=== PATIENT | female | born 1960 | race Caucasian/White ===

== ENCOUNTER 2018-09-21 05:51 | Outpatient (CLI) | payer OTHER ==
[~2018-09-21] VITALS: Ht 167.6 cm; Wt 70.8 kg
[~2018-09-21 05:51] MED LIST: CYAN1TAB26 PO; MG T1TAB2 PO
[2018-09-21] MEDS ORDERED: CHLO1TAB79 PO (13:18)
== END 2018-09-21 13:20 | disposition home or self-care (01) ==
LOC: PREOP 05:51
PROVIDERS: ATTEND Internal Medicine
DX: Z01.818 Encounter for other preprocedural examination (principal)

== ENCOUNTER 2018-09-23 09:01 | Day surgery (SDC) | payer OTHER ==
--- NOTE | 2018-09-21 18:23 | HISTORY AND PHYSICAL ---
DATE OF SERVICE: COLONOSCOPY HISTORY AND PHYSICAL HISTORY OF PRESENT ILLNESS: The patient is a 58-year-old white female who noted the onset of painless bright red blood per rectum in a small volume on the BM and also mixed in with it. She has some intermittent issues with constipation, but did not think that she recalled straining when she first noted in the stool nor was there any pain following the bowel movement. This first began 3 or 4 weeks ago and she has had three episodes, the last one was last . Her stool was not hard. She has not had issues with hemorrhoids in the past. Family history is pertinent for a brother who was diagnosed with colon cancer at the age of 56 and she also had a maternal grandmother who had colon cancer later in life. She has denied any bowel habit changes, noted no melena. She does take an allergy medication that is combined with Advil and is on no other medications of any antiplatelet or anticoagulant effects. She reports taking no form of aspirin. PAST MEDICAL HISTORY: Her last colonoscopy was performed by myself, 3-1/2 years ago. She had one diminutive tubular adenoma removed from the splenic flexure with no other areas of neoplasia. PAST SURGICAL HISTORY: She reports no significant past surgical history. SOCIAL HISTORY: She is employed with no past smoking or drinking history. FAMILY HISTORY: As noted in the HPI. ALLERGIES: SHE REPORTS PENICILLIN CAUSES HIVES. SHE DEVELOPS AGITATED, ANGRY BEHAVIOR WITH MORPHINE AND SO SHE AVOIDS ALL NARCOTIC THERAPY. WE DID HER FIRST COLONOSCOPY UNDER DIPRIVAN AND SHE DID WELL, ALTHOUGH SHE HAD SOME NAUSEA WITH THE PREP. PHYSICAL EXAMINATION: GENERAL: Reveals a pleasant white female who appeared anxious, but not in acute distress. VITAL SIGNS: Blood pressure is 142/84, weight 156.4 pounds. HEENT: Unremarkable. Sclerae are nonicteric. There is no evidence for pallor. CHEST: Clear to auscultation. CARDIOVASCULAR: Reveals a regular rate and rhythm without murmur, S3 or S4. She is a Mallampati 2 oropharyngeal configuration. ABDOMEN: Soft, supple without mass, organomegaly or tenderness. EXTREMITIES: Reveal no cyanosis, clubbing or edema. RECTAL: Evaluation was deferred at the time of colonoscopy. ASSESSMENT AND PLAN: The patient was set up for diagnostic colonoscopy for further evaluation of bright red blood per rectum with a family history pertinent for brother who was diagnosed with colon cancer at the age of 56 and one grandmother later in life. Prep instructions with the Suprep kit were given. I will give Zofran 4 tab one-half an hour before each dose of the prep and perform the procedure under Diprivan anesthesia due to INTOLERANCE TO NARCOTIC THERAPY. Job ID: [id number] DocumentID: [id number] Dictated Date: 09/19/2018 16:39:08 Cable Repairer Date: 09/19/2018 17:56:41 Dictated By: MARY RUSSO MD
[2018-09-23] VITALS (9 sets, daily range): BP systolic 102–133; BP diastolic 52–77
[~2018-09-23] VITALS: Ht 167.6 cm; Wt 70.8 kg
[~2018-09-23 09:01] MED LIST changes: +CHLO1TAB79 PO
[2018-09-23] MEDS ORDERED: LACTATED RINGERS 1,000 ML IV ONE (09:08)
[2018-09-23] MEDS ORDERED: LACTATED RINGERS 1,000 ML IV STA (09:09)
[2018-09-23] MEDS ORDERED: LIDOCAINE JELLY 2% 6 ML SYRINGE MM PRN (09:15)
--- NOTE | 2018-09-23 09:15 | NUR ---
PT C/O HEADACHE 10/25. Addendum: 09/23/18 at 0930 by SG OWENS RN Amended: Links added.
[2018-09-23] MEDS ORDERED: proPOfol 200 MG/20 ML (DIPRIVAN) VIAL IV ONE (10:01)
[2018-09-23] MEDS ORDERED: MIDAZOLAM 2 MG/2 ML (VERSED) VIAL ONE (10:01)
[2018-09-23] MEDS ORDERED: LIDOCAINE JELLY 2% 6 ML SYRINGE ONE (10:05)
--- NOTE | 2018-09-23 11:05 | Pre-Op Note & Conscious Sedat ---
Pre-Operative Progress Note H&P Reviewed The H&P was reviewed, patient examined and no changes noted. Date H&P Reviewed: Sep 23, 2018 Time H&P Reviewed: 10:00 Conscious Sedation Pre-Proced ASA Score 2 For ASA 3 and 4: Consider anesthesia and medical clearance. Also, for patients with a history of failed moderate sedation consider anesthesia. Airway Lungs Heart ASA score ASA 1: a normal healthy patient ASA 2: a patient with a mild systemic disease (mid diabetes, controlled hypertension, obesity ASA 3: a patient with a severe systemic disease that limits activity (angina, COPD, prior Myocardial infarction) ASA 4: a patient with an incapacitating disease that is a constant threat to life (CHF, renal failure) ASA 5: a moribund patient not expected to survive 24 hrs. (ruptured aneurysm) ASA 6: a declared brain- patient whose organs are being harvested. For emergent operations, add the letter E after the classification Mallampati Classification Grade 2 Sedation Plan Analgesia, Amnesia, Plan communicated to team members, Discussed options with patient/fam, Discussed risks with patient/fam The patient is an appropriate candidate to undergo the planned procedure, sedation, and anesthesia. The patient immediately re-assessed prior to indication. MARY RUSSO MD Sep 23, 2018 11:05
--- NOTE | 2018-09-23 12:13 | Anesthesia-General Post-Op ---
MAC Patient Condition Mental Status/LOC: Same as Preop Cardiovascular: Satisfactory Nausea/Vomiting: Absent Respiratory: Satisfactory Pain: Controlled Complications: Absent Post Op Complications Complications None Follow Up Care/Instructions Patient Instructions None needed. Anesthesiology Discharge Order Discharge Order Patient was seen after the procedure and she was doing well, no complaints, stable vital signs, no apparent adverse anesthesia problems. YOLANDA NEGRETE DO Sep 23, 2018 12:13
--- NOTE | 2018-09-23 19:52 | OPERATIVE REPORT ---
DATE OF SERVICE: COLONOSCOPY SUMMARY INDICATION FOR THE PROCEDURE: Rectal bleeding, family history for colon cancer. The patient was placed in the left lateral decubitus position. Prior to doing colonoscopy, digital rectal evaluation was performed. Anal sphincter tone was normal and the perianal reflexes intact. No abnormalities, no additional inspection of anal canal or distal rectal vault. The colonoscope was then inserted into the rectum and under direct visualization advanced to the cecum. The cecum was identified by identification of the ileocecal valve, the cecal strap and appendiceal orifice. Photographic documentation was obtained. The terminal ileum was intubated and distal several centimeters of terminal ileum inspected. Careful inspection was made as colonoscope was withdrawn. FINDINGS: The distal 3-4 cm of rectum revealed loss of the usual vascular markings and erythema with mild increase in friability on biopsy compatible with proctitis. No ulceration, pseudopolyps or evidence for true polyps were noted. The proximal rectum and sigmoid colon were unremarkable except for a diminutive polyp, which was noted in the proximal sigmoid colon measuring 2-3 mm in size. It was photographed and biopsied and ablated and submitted for histopathology. No evidence for diverticular disease was noted. The ascending colon, transverse colon and distal ascending colon were unremarkable. Similar appearing diffuse erythema without ulceration, but loss of usual vascular markings was noted involving the proximal ascending colon and cecum. No ulceration was noted and they had the exact same appearance as the distal rectum. Biopsy from the proximal ascending colon and cecum were obtained. The terminal ileum was unremarkable to visual examination with no evidence for inflammation, ulceration or other abnormality. ASSESSMENT: Rather diffuse colitis involving the distal rectum as well as proximal ascending colon and cecum. It is atypical for ulcerative colitis as there is a large skip area involving the rest of the colon. This is most likely cause of this patient's small volume rectal bleeding. Lack of significant diarrhea also speaks against ulcerative colitis. The patient was advised to discontinue an allergy decongestant medication that contains ibuprofen due to the ibuprofen component, was told she could continue an antihistamine with decongestant if need be. We will await histopathology report, but likely advice no longer than a 5-year screening colonoscopy considering family history. I am her primary care provider. Job ID: [id number] DocumentID: [id number] Dictated Date: 09/23/2018 11:23:12 Maintenance Worker House Trailer Date: 09/23/2018 19:50:58 Dictated By: MARY RUSSO MD MTDD
== END 2018-09-23 11:58 | disposition home or self-care (01) ==
LOC: ENDO 09:01
PROVIDERS: ATTEND Internal Medicine
DX: D12.3 Benign neoplasm of transverse colon (principal); D12.5 Benign neoplasm of sigmoid colon; K62.5 Hemorrhage of anus and rectum; K62.89 Other specified diseases of anus and rectum; K52.9 Noninfective gastroenteritis and colitis, unspecified; K21.9 Gastro-esophageal reflux disease without esophagitis; Z88.8 Allergy status to other drugs, medicaments and biological substances; Z88.0 Allergy status to penicillin; Z80.0 Family history of malignant neoplasm of digestive organs

== ENCOUNTER 2019-10-25 05:49 | Outpatient (CLI) | payer OTHER ==
[~2019-10-25] VITALS: Ht 167 cm; Wt 69.5 kg
[2019-10-25] MEDS ORDERED: CETI10TA17 PO (12:47)
[2019-10-25] MEDS ORDERED: MULT-1136 PO (12:47)
== END 2019-10-25 12:49 | disposition home or self-care (01) ==
LOC: PREOP 05:49
PROVIDERS: ATTEND Internal Medicine
DX: Z01.818 Encounter for other preprocedural examination (principal)

== ENCOUNTER 2019-10-27 08:02 | Day surgery (SDC) | payer OTHER ==
--- NOTE | 2019-10-19 22:12 | HISTORY AND PHYSICAL ---
DATE OF SERVICE: COLONOSCOPY HISTORY AND PHYSICAL HISTORY OF PRESENT ILLNESS: The patient is a 59-year-old white female seen in the office on 10/18 for wellness evaluation as well as surveillance colonoscopy. She last underwent colonoscopy one year ago, at which time she had several tubular adenomas, one removed from the distal sigmoid colon and another removed from the hepatic flexure. She also had evidence for active colitis, which was favored to be of infectious etiology. She denies any problems with diarrhea or bright red blood per rectum and reports no change in health history. She has had no abdominal pain or change in weight. FAMILY HISTORY: Pertinent for colon cancer in her brother diagnosed at the age of 56 and also had one maternal grandmother, who had colon cancer later in life. PAST SURGICAL HISTORY: She reports no past surgery. PAST MEDICAL HISTORY: She takes no prescription medication, reporting no significant past medical history. FAMILY HISTORY: As noted in the HPI. SOCIAL HISTORY: She is employed with no past smoking or drinking history. REVIEW OF SYSTEMS: CONSTITUTIONAL: She denies night sweats, chills, fever or change in weight. PULMONARY: She denies cough, congestion, wheezing or shortness of breath. CARDIAC: She denies orthopnea, PND, pedal edema, syncope, presyncope or chest discomfort. PHYSICAL EXAMINATION: GENERAL: Reveals a white female, who appears to be in no acute distress. VITAL SIGNS: Blood pressure was 140/84. Weight stable at 156.4 pounds, BMI 25. HEENT: Unremarkable. Ear canals clear with normal TMs. CHEST: Clear to auscultation. CARDIOVASCULAR: Reveals a regular rate and rhythm without murmur, S3 or S4. ABDOMEN: Soft, supple without mass or organomegaly. There is mild tenderness in the epigastrium without rebound or guarding. No bruits are noted. EXTREMITIES: Reveal no cyanosis, clubbing or edema. SKIN: Evaluation reveals no suspicious nevi. ASSESSMENT AND PLAN: 1. Unremarkable wellness evaluation. The patient was sent for chemistry panel, lipid panel. 2. Past history of colitis as well as colonic adenomas. The patient is set up for surveillance colonoscopy. Prep instructions and Suprep kit were given and questions were answered with plans for anesthesia administered Diprivan-based anesthetic. We will be calling the patient for yearly wellness evaluation and she will receive her yearly flu shots through the hospital. Job ID: [id number] DocumentID: [id number] Dictated Date: 10/19/2019 08:35:44 Administrative Services Manager Date: 10/19/2019 08:55:10 Dictated By: MARY RUSSO MD
[~2019-10-27] VITALS: Ht 167 cm; Wt 69.5 kg
[~2019-10-27 08:02] MED LIST changes: +CETI10TA17 PO; +MULT-1136 PO
[2019-10-27] MEDS ORDERED: LACTATED RINGERS 1,000 ML IV ONE (08:09)
[2019-10-27] MEDS ORDERED: LACTATED RINGERS 1,000 ML IV STA (08:34)
[2019-10-27 08:41] VITALS: BP 124/72
--- NOTE | 2019-10-27 08:43 | Pre-Op Note & Conscious Sedat ---
Pre-Operative Progress Note H&P Reviewed The H&P was reviewed, patient examined and no changes noted. Date H&P Reviewed: Oct 27, 2019 Time H&P Reviewed: 08:42 Conscious Sedation Pre-Proced ASA Score 1 For ASA 3 and 4: Consider anesthesia and medical clearance. Also, for patients with a history of failed moderate sedation consider anesthesia. Airway Lungs Heart ASA score ASA 1: a normal healthy patient ASA 2: a patient with a mild systemic disease (mid diabetes, controlled hypertension, obesity ASA 3: a patient with a severe systemic disease that limits activity (angina, COPD, prior Myocardial infarction) ASA 4: a patient with an incapacitating disease that is a constant threat to life (CHF, renal failure) ASA 5: a moribund patient not expected to survive 24 hrs. (ruptured aneurysm) ASA 6: a declared brain- patient whose organs are being harvested. For emergent operations, add the letter E after the classification Mallampati Classification Grade 2 Sedation Plan Analgesia, Amnesia, Plan communicated to team members, Discussed options with patient/fam, Discussed risks with patient/fam The patient is an appropriate candidate to undergo the planned procedure, sedation, and anesthesia. The patient immediately re-assessed prior to indication. MARY RUSSO MD Oct 27, 2019 08:43
[2019-10-27] MEDS ORDERED: LIDOCAINE JELLY 2% 6 ML SYRINGE MM PRN (08:45)
[2019-10-27] MEDS ORDERED: LIDOCAINE JELLY 2% 6 ML SYRINGE ONE (08:49)
[2019-10-27] MEDS ORDERED: PROPOFOL INJECTION 50 ML IV ONE (09:10)
[2019-10-27] MEDS ORDERED: MIDAZOLAM 2 MG/2 ML (VERSED) VIAL ONE (09:11)
[2019-10-27] MEDS ORDERED: proPOfol 200 MG/20 ML (DIPRIVAN) VIAL IV ONE (09:36)
[2019-10-27 09:55] VITALS: BP 102/58
--- NOTE | 2019-10-27 09:55 | Anesthesia-General Post-Op ---
MAC Patient Condition Mental Status/LOC: Same as Preop Cardiovascular: Satisfactory Nausea/Vomiting: Absent Respiratory: Satisfactory Pain: Controlled Complications: Absent Post Op Complications Complications None Follow Up Care/Instructions Patient Instructions None needed. Anesthesiology Discharge Order Discharge Order Patient is doing well, no complaints, stable vital signs, no apparent adverse anesthesia problems. No complications reported per nursing. AMA GARCIA CRNA Oct 27, 2019 09:55
[2019-10-27 10:00] VITALS: BP 100/59
[2019-10-27 10:05] VITALS: BP 100/59
[2019-10-27 10:35] VITALS: BP 115/60
[2019-10-27 10:44] VITALS: BP 115/60
--- NOTE | 2019-10-27 19:46 | OPERATIVE REPORT ---
DATE OF SERVICE: COLONOSCOPY SUMMARY INDICATION FOR THE PROCEDURE: History of colon polyps. DESCRIPTION OF PROCEDURE: The patient was placed in the left lateral decubitus position. Prior to undergoing a colonoscopy, digital rectal evaluation was performed. Anal sphincter tone was normal and the perianal reflexes intact. No abnormalities were noted on inspection of anal canal or distal rectal vault. The colonoscope was then inserted into the rectum and under direct visualization advanced to the cecum. The cecum was identified by identification of the ileocecal valve and cecal strap. Photographic documentation was obtained. Careful inspection was made as colonoscope was withdrawn. Quality of prep was good. FINDINGS: There was no evidence for internal or external hemorrhoids. Again noted were findings compatible with proctitis as well as colitis involving the distal sigmoid colon and rectum as well as the proximal ascending colon and cecum with a large skip area in between. No ulcerations were noted. There was erythema and loss of usual vascular markings and the involved segments. No polyps were identified. No diverticulum was identified and the terminal ileum was unremarkable on visual inspection. The biopsies were obtained from the ascending colon and rectum and submitted for histopathology. ASSESSMENT: No evidence for neoplasia was identified on today's procedure with no recurrence of the patient's previously removed polyps. There again are changes of colitis involving the proximal ascending colon, cecum and distal sigmoid colon and rectum, unchanged from one year ago. In discussion with the patient, she had recently been taking Advil Sinus, was on no other medications. We again advised that she abstain from nonsteroidal medication as her biopsy findings suggest the possibility of medication induced colitis. She again denies abdominal pain, diarrhea, making symptoms of infection or inflammatory bowel disease is much less likely. The distribution of skip area again with unremarkable terminal ileum speaks against ulcerative colitis or Crohn's disease. We will likely be advocating repeat surveillance colonoscopy in 3 years. Job ID: [id number] DocumentID: [id number] Dictated Date: 10/27/2019 10:41:48 Education Program Specialist Date: 10/27/2019 19:45:26 Dictated By: MD PANKAJ WOODY
== END 2019-10-27 10:45 | disposition home or self-care (01) ==
LOC: ENDO 08:02
PROVIDERS: ATTEND Internal Medicine
DX: K52.9 Noninfective gastroenteritis and colitis, unspecified (principal); Z88.0 Allergy status to penicillin; Z88.5 Allergy status to narcotic agent; Z86.010 Personal history of colon polyps
CPT/HCPCS: 88305

== ENCOUNTER → 2021-10-17 | Outpatient (CLI) | payer OTHER ==
--- NOTE | 2021-10-17 17:53 | Diagnostic Imaging Report ---
PROCEDURE: US thyroid. TECHNIQUE: Multiple real-time grayscale images were obtained of the thyroid in various projections. INDICATION: Palpable mass in the left neck. Evaluate for nodule. COMPARISON: None. FINDINGS: Both thyroid lobes demonstrate smooth and homogenous background echotexture. Color flow Doppler demonstrates normal and symmetric vascularity, bilaterally. The right lobe measures 3.9 cm in length, 1.1 cm AP and 0.8 cm transverse. The left lobe measures 3.6 cm in length, 1.1 cm AP and 1.0 cm transverse. The isthmus measures 0.3 cm. A solid iso to hypoechoic nodule is visualized in the left aspect of the isthmus measuring 1.9 x 0.8 x 1.7 cm. The margins of this nodule are somewhat irregular and lobulated. Internal vascularity is seen within this nodule. Smaller solid nodules are seen in the right lobe of the thyroid measuring up to 0.8 cm. IMPRESSION: Solid mildly heterogeneous nodule in the left aspect of the isthmus measuring 1.9 cm. Based on imaging characteristics and size criteria, further evaluation with thyroid FNA is recommended. Dictated by: Dictated on workstation # [id number]
== END ==
LOC: RAD 12:00
PROVIDERS: ATTEND Internal Medicine
DX: E04.1 Nontoxic single thyroid nodule (principal)
CPT/HCPCS: 76536

== ENCOUNTER → 2021-11-05 | Outpatient (CLI) | payer OTHER ==
[~2021-11-05] VITALS: Ht 167.6 cm; Wt 70.9 kg
[~2021-11-05] MED LIST changes: +LIDOCAINE 1% INJ 10 ML VIAL INJ ONE; +LIDOCAINE 1% INJ 10 ML VIAL ONE
--- NOTE | 2021-11-05 12:42 | Diagnostic Imaging Report ---
INDICATION: Thyroid nodule. Patient presents for ultrasound-guided fine-needle aspiration Rotex biopsy. Patient brought to the procedure and placed on table in the supine position. Ultrasound imaging was performed to evaluate appropriate entry site. The skin of the left neck was prepped and draped usual sterile fashion. Small amount 1% lidocaine was utilized for local anesthesia. Total of 4 passes were made into the dominant solid nodule involving the left aspect of the thyroid isthmus utilizing 25-gauge needles and final aspiration technique. Single pass was made with a Rotex needle and Rotex biopsy was performed. Hemostasis was obtained. Patient tolerated the procedure well and left the department in stable condition. IMPRESSION: Successful ultrasound-guided fine-needle aspiration Rotex biopsy of isthmus nodule. Final pathology results are currently pending. Dictated by: Dictated on workstation # [id number]
== END ==
LOC: RAD 11:30
PROVIDERS: ATTEND Internal Medicine
DX: E04.1 Nontoxic single thyroid nodule (principal)
CPT/HCPCS: 10005